=== PATIENT | female | born 1950 | race Caucasian/White ===

== ENCOUNTER → 2017-08-07 | Outpatient (CLI) | payer MEDICARE, OTHER | END | disposition home or self-care (01) | LOC: CDC 08:55 | DX: R94.31 Abnormal electrocardiogram [ECG] [EKG] (principal); D21.22 Benign neoplasm of connective and other soft tissue of left lower limb, including hip; S82.852D Displaced trimalleolar fracture of left lower leg, subsequent encounter for closed fracture with routine healing | CPT/HCPCS: 93000 ==